=== PATIENT | male | born 1965 | race Hispanic/Latino ===

== ENCOUNTER 2017-09-25 08:25 | Emergency (ER) | payer OTHER ==
[2017-09-25] MEDS ORDERED: COLCHICINE 0.6 MG TAB ONE (09:05)
--- NOTE | 2017-09-25 09:51 | EDPHYS ---
Physician Documentation [facility] Name: Ralf Ferreira Age: 51 yrs Sex: Male : 1965 Arrival Date: 09/25/2017 Time: 08:26 Bed 8 Private MD: ED Physician Uriel Whitaker HPI: 09/25 08:41 This 51 yrs old Male presents to ER via Ambulatory with complaints of Foot kb Pain-Gout. 08:41 The patient presents with pain, that is acute, swelling, gout. The complaints affect kb the right foot. Context: The problem was sustained at home, resulted from a chronic condition, gout, the patient can partially bear weight, can ambulate using a cane. Onset: The symptoms/episode began/occurred 2 day(s) ago. Modifying factors: The symptoms are alleviated by nothing, the symptoms are aggravated by weight bearing, wearing shoes, touching area. Associated signs and symptoms: Pertinent positives: swelling, Pertinent negatives: calf tenderness, fever, nausea, numbness, rash, tingling, vomiting, warmth, weakness. Severity of symptoms: At their worst the symptoms were moderate, in the emergency department the symptoms are unchanged. The patient has experienced similar episodes in the past, several times. The patient has not recently seen a physician. Pt states he takes allopurinol for gout. States he felt a flare-up coming on and now it hurts to bear weight. States "I have a rockets game to go to [place] so I need to get rid of this pain." Reports pain started in right great toe and has spread to entire top of foot. Historical: - Allergies: 08:33 No Known Allergies; ss - Home Meds: 08:33 furosemide 40 mg Oral tab 1 tab once daily [Active]; clonidine HCl 0.1 mg Oral tab 1 ss tab once daily [Active]; allopurinol 100 mg Oral tab 1 tab once daily [Active]; hydralazine 50 mg Oral tab 1 tab daily [Active]; - PMHx: 08:33 Gout; Hypertension; ss - PSHx: 08:33 None; ss - Immunization history:: Adult Immunizations up to date. - Social history:: Smoking status: Patient uses tobacco products, denies chronic smoking, but will smoke occasionally. ROS: 08:44 Constitutional: Negative for fever, chills, and weight loss, Cardiovascular: Negative kb for chest pain, palpitations, and edema, Respiratory: Negative for shortness of breath, cough, wheezing, and pleuritic chest pain, Abdomen/GI: Negative for abdominal pain, nausea, vomiting, diarrhea, and constipation, : Negative for injury, bleeding, discharge, and swelling, Skin: Negative for injury, rash, and discoloration, Neuro: Negative for headache, weakness, numbness, tingling, and seizure. 08:44 MS/extremity: Positive for erythema, pain, swelling, tenderness, of the right first toe. Exam: 08:44 Constitutional: This is a well developed, well nourished patient who is awake, alert, kb and in no acute distress. Head/Face: Normocephalic, atraumatic. Chest/axilla: Normal chest wall appearance and motion. Nontender with no deformity. No lesions are appreciated. Cardiovascular: Regular rate and rhythm with a normal S1 and S2. No gallops, murmurs, or rubs. Normal PMI, no JVD. No pulse deficits. Respiratory: Lungs have equal breath sounds bilaterally, clear to auscultation and percussion. No rales, rhonchi or wheezes noted. No increased work of breathing, no retractions or nasal flaring. Abdomen/GI: Soft, non-tender, with normal bowel sounds. No distension or tympany. No guarding or rebound. No evidence of tenderness throughout. Skin: Warm, dry with normal turgor. Normal color with no rashes, no lesions, and no evidence of cellulitis. Neuro: Awake and alert, GCS 15, oriented to person, place, time, and situation. Cranial nerves II-XII grossly intact. Motor strength 5/5 in all extremities. Sensory grossly intact. Cerebellar exam normal. Normal gait. 08:44 Musculoskeletal/extremity: Extremities: grossly normal except: noted in the dorsum of right foot and right first toe: pain, ROM: intact in all extremities, Circulation is intact in all extremities. Sensation intact. Weight bearing: can bear weight with assistance only, uses cane. Vital Signs: 08:33 BP 160 / 99; Pulse 60; Resp 16; Pulse Ox 99% on R/A; Weight 90.72 kg; Height 6 ft. 0 ss in. (182.88 cm); Pain 9/10; 10:31 BP 155 / 92; Pulse 72; Resp 19; Pulse Ox 99% on R/A; aj 08:33 Body Mass Index 27.12 (90.72 kg, 182.88 cm) ss MDM: 08:34 Patient medically screened. kb 08:44 Data reviewed: vital signs, nurses notes. Data interpreted: Pulse oximetry: on room air kb is 99 %. Interpretation: normal. 09:44 Counseling: I had a detailed discussion with the patient and/or guardian regarding: the kb historical points, exam findings, and any diagnostic results supporting the discharge/admit diagnosis, the need for outpatient follow up, a family practitioner, to return to the emergency department if symptoms worsen or persist or if there are any questions or concerns that arise at home. Administered Medications: 08:55 Drug: Colcrys 1.2 mg Route: PO; ph 10:31 Follow up: Response: No adverse reaction aj 10:30 Drug: SOLU-Medrol 125 mg Route: IM; Site: right deltoid; aj 10:31 Follow up: Response: No adverse reaction aj 10:33 Follow up: Response: Medication administered at discharge. aj 10:31 Drug: [place] (7.5 mg-325 mg) 1 tabs Route: PO; aj 10:31 Follow up: Response: No adverse reaction aj 10:33 Follow up: Response: Medication administered at discharge. aj Disposition: 09/25/17 09:51 Discharged to Home. Impression: Gout. - Condition is Stable. - Discharge Instructions: Gout, [id number]. - Prescriptions for indomethacin 25 mg Oral capsule - take 1 capsule by ORAL route 3 times per day for 7 days Take 2 capsules 3 times per day for 3 days, then 1 capsule 3 times per day for 4 days; 30 capsule. - Medication Reconciliation Form, Thank You Letter, Antibiotic Education, Prescription Opioid Use form. - Follow up: Emergency Department; When: As needed; Reason: Worsening of condition. Follow up: Private Physician; When: 2 - 3 days; Reason: Recheck today's complaints, Continuance of care, Re-evaluation by your physician. Addendum: 09/27/2017 08:04 Co-signature as Attending Physician, Uriel Whitaker MD I agree with the assessment and c peterson plan of care. Signatures: Ade Cruz, YESY-C YESY-Cami Fernandez RN RN aj Anderson, Corey, MD MD cha [facility] Tawnya, JHONNY RN ss Marjan Albarran RN RN ph Corrections: (The following items were deleted from the chart) 09/25 08:47 08:41 Pt states he takes allopurinol for gout. States he felt a flare-up coming on and kb now it hurts to bear weight. States "I have a [employer] game to go to [place] so I need to get rid of this pain.". kb
--- NOTE | 2017-09-25 09:51 | ER ---
Nurse's Notes [facility] Name: Ralf Ferreira Age: 51 yrs Sex: Male : 1965 Arrival Date: 09/25/2017 Time: 08:26 Bed 8 Private MD: Diagnosis: Gout Presentation: 09/25 08:30 Presenting complaint: Patient states: "gout" R foot x 2 days. Transition of care: ss patient was not received from another setting of care. Onset of symptoms was September 23, 2017. Care prior to arrival: None. 08:30 Method Of Arrival: Ambulatory ss 08:30 Acuity: DALIA 5 ss Historical: - Allergies: 08:33 No Known Allergies; ss - Home Meds: 08:33 furosemide 40 mg Oral tab 1 tab once daily [Active]; clonidine HCl 0.1 mg Oral tab 1 ss tab once daily [Active]; allopurinol 100 mg Oral tab 1 tab once daily [Active]; hydralazine 50 mg Oral tab 1 tab daily [Active]; - PMHx: 08:33 Gout; Hypertension; ss - PSHx: 08:33 None; ss - Immunization history:: Adult Immunizations up to date. - Social history:: Smoking status: Patient uses tobacco products, denies chronic smoking, but will smoke occasionally. Screenin:00 Abuse screen: Denies threats or abuse. Denies injuries from another. Nutritional ph screening: No deficits noted. Tuberculosis screening: No symptoms or risk factors identified. Fall Risk None identified. Assessment: 08:56 General: Appears in no apparent distress. uncomfortable, slender, well groomed, ph Behavior is calm, cooperative, appropriate for age, Denies fever, feeling ill. Pain: Complains of pain in right foot. Neuro: Level of Consciousness is awake, alert, obeys commands, Oriented to person, place, time, situation. Cardiovascular: Capillary refill < 3 seconds Patient's skin is warm and dry. Respiratory: Airway is patent Respiratory effort is even, unlabored. Derm: Skin is intact, is healthy with good turgor, Skin is pink, warm \\T\\ dry. Musculoskeletal: Circulation, motion, and sensation intact. Range of motion: intact in all extremities, slight swelling and redness noted to top of R foot. Vital Signs: 08:33 BP 160 / 99; Pulse 60; Resp 16; Pulse Ox 99% on R/A; Weight 90.72 kg; Height 6 ft. 0 ss in. (182.88 cm); Pain 9/10; 10:31 BP 155 / 92; Pulse 72; Resp 19; Pulse Ox 99% on R/A; aj 08:33 Body Mass Index 27.12 (90.72 kg, 182.88 cm) ED Course: 08:26 Patient arrived in ED. as 08:30 Triage completed. ss 08:33 Arm band placed on right wrist. ss 08:34 [facility]C [facility]. kb 08:34 Uriel Whitaker MD is Attending Physician. kb 08:41 Cece Estrada, RN is Primary Nurse. hb 08:44 Marjan Albarran, RN is Primary Nurse. ph 10:31 Patient has correct armband on for positive identification. aj 10:31 No provider procedures requiring assistance completed. Patient did not have IV access aj during this emergency room visit. Administered Medications: 08:55 Drug: Colcrys 1.2 mg Route: PO; ph 10:31 Follow up: Response: No adverse reaction aj 10:30 Drug: SOLU-Medrol 125 mg Route: IM; Site: right deltoid; aj 10:31 Follow up: Response: No adverse reaction aj 10:33 Follow up: Response: Medication administered at discharge. aj 10:31 Drug: [place] (7.5 mg-325 mg) 1 tabs Route: PO; aj 10:31 Follow up: Response: No adverse reaction aj 10:33 Follow up: Response: Medication administered at discharge. aj Outcome: 09:51 Discharge ordered by . kb 10:31 Discharged to home ambulatory, with family. aj 10:31 Condition: good 10:31 Discharge instructions given to patient, family, Instructed on discharge instructions, follow up and referral plans. medication usage, Demonstrated understanding of instructions, follow-up care, medications, Prescriptions given X 1. 10:34 Patient left the ED. aj Signatures: Ade Cruz FNP-C FNP-Ckb Myers, Amanda, RN RN aj Martinez, Amelia as Smirch, Shelby, RN RN Marjan Albarran RN RN Cece Estrada, JHONNY RN
[2017-09-25] MEDS ORDERED: METHYLPREDNISOLONE 125 MG INJ ONE (10:45)
[2017-09-25] MEDS ORDERED: HYDROCODONE/APAP 7.5/325 MG TAB ONE (10:45)
== END 2017-09-25 10:34 | disposition home or self-care (01) ==
LOC: ER 08:25
DX: M10.9 Gout, unspecified (principal); I10 Essential (primary) hypertension; Z72.0 Tobacco use
CPT/HCPCS: 96372; 99283; J2930

== ENCOUNTER 2017-12-02 16:59 | Emergency (ER) | payer OTHER, SELFPAY ==
[2017-12-02] MEDS ORDERED: COLCHICINE 0.6 MG TAB ONE (17:45)
[2017-12-02] MEDS ORDERED: METHYLPREDNISOLONE 125 MG INJ ONE (17:45)
[2017-12-02] MEDS ORDERED: HYDROCODONE/APAP 5/325 MG TAB ONE (18:48)
--- NOTE | 2017-12-02 18:48 | ER ---
Nurse's Notes [facility] Name: Ralf Ferreira Age: 52 yrs Sex: Male : 1965 Arrival Date: 12/02/2017 Time: 17:02 Bed 5 Private MD: out of town, doctor Diagnosis: Gout right foot Presentation: 12/02 17:06 Presenting complaint: Patient states: Gout to right foot for 2 days. Patient reports aj gout flare to left foot several days ago. Patient reports calling Dr Joe and getting RX called in. Transition of care: patient was not received from another setting of care. Onset of symptoms was November 26, 2017. Care prior to arrival: None. 17:06 Method Of Arrival: Wheelchair aj 17:06 Acuity: DALIA 4 aj 18:10 Risk Assessment: Do you want to hurt yourself or someone else? Patient reports no sg desire to harm self or others. Initial Sepsis Screen: Does the patient meet any 2 criteria? No. Patient's initial sepsis screen is negative. Does the patient have a suspected source of infection? No. Patient's initial sepsis screen is negative. Triage Assessment: 17:08 General: Appears in no apparent distress. comfortable, Behavior is calm, cooperative, aj appropriate for age. Pain: Complains of pain in right foot. Neuro: Level of Consciousness is awake, alert, obeys commands, Oriented to person, place, time, situation, Appropriate for age. Respiratory: Airway is patent Respiratory effort is even, unlabored, Respiratory pattern is regular, symmetrical. Derm: Skin is intact, is healthy with good turgor, Skin is pink, warm \T\ dry. normal. Musculoskeletal: Reports pain in right foot. Historical: - Allergies: 17:08 No Known Allergies; aj - Home Meds: 17:08 allopurinol 200mg Oral tab 1 tab once daily [Active]; clonidine HCl 0.1 mg Oral tab 1 aj tab once daily [Active]; furosemide 40 mg Oral tab 1 tab once daily [Active]; hydralazine 50 mg Oral tab 1 tab daily [Active]; - PMHx: 17:08 Gout; Hypertension; aj - PSHx: 17:08 None; aj - Immunization history:: Adult Immunizations up to date. - Social history:: Smoking status: Patient/guardian denies using tobacco. - Ebola Screening: : Patient negative for fever greater than or equal to 101.5 degrees Fahrenheit, and additional compatible Ebola Virus Disease symptoms Patient denies exposure to infectious person Patient denies travel to an Ebola-affected area in the 21 days before illness onset No symptoms or risks identified at this time. Screenin:07 Abuse screen: Denies threats or abuse. Denies injuries from another. Nutritional iw screening: No deficits noted. Tuberculosis screening: No symptoms or risk factors identified. Fall Risk None identified. Assessment: 18:07 Reassessment: Patient appears in no apparent distress at this time. Patient and/or iw family updated on plan of care and expected duration. Pain level reassessed. Patient is alert, oriented x 3, equal unlabored respirations, skin warm/dry/pink. 18:42 Reassessment: Patient appears in no apparent distress at this time. Patient and/or sg family updated on plan of care and expected duration. Pain level reassessed. Patient is alert, oriented x 3, equal unlabored respirations, skin warm/dry/pink. Vital Signs: 17:08 BP 158 / 109; Pulse 107; Resp 19; Temp 98.6; Pulse Ox 98% on R/A; Weight 97.52 kg; aj Height 6 ft. 0 in. (182.88 cm); 17:08 Body Mass Index 29.16 (97.52 kg, 182.88 cm) ED Course: 17:02 Patient arrived in ED. mr 17:03 out of town, doctor is Private Physician. mr 17:08 Triage completed. aj 17:08 Arm band placed on left wrist. Patient placed in an exam room. aj 17:14 Phil Keating NP is PHCP. pm1 17:14 Phuc Murphy MD is Attending Physician. pm1 17:15 No provider procedures requiring assistance completed. sg 17:30 Blane Bar, RN is Primary Nurse. sg 17:35 Patient has correct armband on for positive identification. Bed in low position. Call sg light in reach. Side rails up X2. Pulse ox on. NIBP on. 18:50 Patient did not have IV access during this emergency room visit. sg Administered Medications: 17:52 Drug: Colcrys 1.2 mg Route: PO; sg 18:30 Follow up: Response: No adverse reaction 17:52 Drug: SOLU-Medrol 125 mg Route: IM; Site: right gluteus; sg 18:30 Follow up: Response: No adverse reaction sg 18:47 Drug: [place] 5 mg-325 mg 1 tabs Route: PO; sg 18:50 Follow up: Response: No adverse reaction Outcome: 18:47 Discharge ordered by . pm1 18:50 Discharged to home ambulatory, with family. sg 18:50 Condition: good 18:50 Discharge instructions given to patient, Instructed on discharge instructions, follow up and referral plans. medication usage, safety practices, Demonstrated understanding of instructions, follow-up care, medications, Prescriptions given X 2. 18:59 Patient left the ED. iw Signatures: Blane Bar RN RN sg Myers, Amanda, RN RN aj Rivera, Maria mr Andreea Staton, RN JHONNY iw Phil Keating, AMINA STUDENT FINANCIAL SERVICES COUNSELOR pm1
--- NOTE | 2017-12-02 18:48 | EDPHYS ---
Physician Documentation [facility] Name: Ralf Ferreira Age: 52 yrs Sex: Male : 1965 Arrival Date: 12/02/2017 Time: 17:02 Bed 5 Private MD: out of town, doctor ED Physician Phuc Murphy HPI: 12/02 18:45 This 52 yrs old Male presents to ER via Wheelchair with complaints of Gout. pm1 18:45 The patient presents with pain, swelling, tenderness. The complaints affect the right pm1 foot. Context: The problem was sustained at home, resulted from a gout flare up, similar to previous episodes, the patient can fully bear weight, the patient is able to ambulate. Onset: The symptoms/episode began/occurred 2 day(s) ago. Modifying factors: The symptoms are alleviated by nothing, the symptoms are aggravated by weight bearing, movement. Associated signs and symptoms: Pertinent negatives: calf tenderness, fever. Severity of symptoms: in the emergency department the symptoms are actually worse. The patient has experienced similar episodes in the past, multiple times. Patient with drinking alcohol and eating food that flares up his gout. His daughter recently graduated and he was celebrating. Had a left gout flare up that was treated with colcrys called in by Dr. Joe. As his left foot was resolving he felt that his right foot was starting to flare up. Historical: - Allergies: 17:08 No Known Allergies; aj - Home Meds: 17:08 allopurinol 200mg Oral tab 1 tab once daily [Active]; clonidine HCl 0.1 mg Oral tab 1 aj tab once daily [Active]; furosemide 40 mg Oral tab 1 tab once daily [Active]; hydralazine 50 mg Oral tab 1 tab daily [Active]; - PMHx: 17:08 Gout; Hypertension; aj - PSHx: 17:08 None; aj - Immunization history:: Adult Immunizations up to date. - Social history:: Smoking status: Patient/guardian denies using tobacco. - Ebola Screening: : Patient negative for fever greater than or equal to 101.5 degrees Fahrenheit, and additional compatible Ebola Virus Disease symptoms Patient denies exposure to infectious person Patient denies travel to an Ebola-affected area in the 21 days before illness onset No symptoms or risks identified at this time. ROS: 18:45 MS/extremity: Positive for pain, swelling, tenderness, of the right foot. pm1 18:45 Constitutional: Negative for fever, chills, and weight loss, Eyes: Negative for injury, pain, redness, and discharge, ENT: Negative for injury, pain, and discharge, Neck: Negative for injury, pain, and swelling, Cardiovascular: Negative for chest pain, palpitations, and edema, Respiratory: Negative for shortness of breath, cough, wheezing, and pleuritic chest pain, Abdomen/GI: Negative for abdominal pain, nausea, vomiting, diarrhea, and constipation, Back: Negative for injury and pain, : Negative for injury, bleeding, discharge, and swelling, Skin: Negative for injury, rash, and discoloration, Neuro: Negative for headache, weakness, numbness, tingling, and seizure. Exam: 18:45 Constitutional: This is a well developed, well nourished patient who is awake, alert, pm1 and in no acute distress. Head/Face: Normocephalic, atraumatic. Chest/axilla: Normal chest wall appearance and motion. Nontender with no deformity. No lesions are appreciated. Cardiovascular: Regular rate and rhythm with a normal S1 and S2. No gallops, murmurs, or rubs. Normal PMI, no JVD. No pulse deficits. Respiratory: Lungs have equal breath sounds bilaterally, clear to auscultation and percussion. No rales, rhonchi or wheezes noted. No increased work of breathing, no retractions or nasal flaring. Abdomen/GI: Soft, non-tender, with normal bowel sounds. No distension or tympany. No guarding or rebound. No evidence of tenderness throughout. Back: No spinal tenderness. No costovertebral tenderness. Full range of motion. Skin: Warm, dry with normal turgor. Normal color with no rashes, no lesions, and no evidence of cellulitis. 18:45 Musculoskeletal/extremity: Extremities: grossly normal except: noted in the right foot: tenderness, There is no evidence of decreased ROM, deformity, ROM: intact in all extremities, Circulation is intact in all extremities. 18:45 Neuro: Orientation: is normal, Motor: is normal, moves all fours. Vital Signs: 17:08 BP 158 / 109; Pulse 107; Resp 19; Temp 98.6; Pulse Ox 98% on R/A; Weight 97.52 kg; aj Height 6 ft. 0 in. (182.88 cm); 17:08 Body Mass Index 29.16 (97.52 kg, 182.88 cm) aj MDM: 17:15 Patient medically screened. pm1 18:46 Data reviewed: vital signs. Data interpreted: Pulse oximetry: on room air is 98 %. pm1 Interpretation: normal. Counseling: I had a detailed discussion with the patient and/or guardian regarding: the historical points, exam findings, and any diagnostic results supporting the discharge/admit diagnosis, the need for outpatient follow up, to return to the emergency department if symptoms worsen or persist or if there are any questions or concerns that arise at home. 18:47 ED course: Pain improved to 5/10 with colcrys and steroid injection. Will give patient pm1 additional pain medications for more pain relief. Administered Medications: 17:52 Drug: Colcrys 1.2 mg Route: PO; sg 18:30 Follow up: Response: No adverse reaction sg 17:52 Drug: SOLU-Medrol 125 mg Route: IM; Site: right gluteus; sg 18:30 Follow up: Response: No adverse reaction sg 18:47 Drug: [place] 5 mg-325 mg 1 tabs Route: PO; sg 18:50 Follow up: Response: No adverse reaction sg Disposition: 22:16 Co-signature as Attending Physician, Phuc Murphy MD I agree with the assessment and kdr plan of care. Disposition: 12/02/17 18:47 Discharged to Home. Impression: Gout right foot. - Condition is Stable. - Discharge Instructions: Gout. - Prescriptions for Colcrys 0.6 mg Oral tablet - take 1 tablet by ORAL route once daily; 3 tablet. Tylenol- Codeine #3 300-30 mg Oral Tablet - take 2 tablets by ORAL route every 6 hours As needed; 20 tablet. - Work release form, Medication Reconciliation Form, Thank You Letter, Prescription Opioid Use form. - Follow up: Emergency Department; When: As needed; Reason: Worsening of condition. Follow up: Private Physician; When: 2 - 3 days; Reason: Recheck today's complaints, Continuance of care, Re-evaluation by your physician. - Problem is new. - Symptoms have improved. Signatures: Blane Bar RN RN sg Myers, Amanda, RN RN aj Rittger Phuc, MD MD kdr Shemar, Andreea, RN RN iw Phil Keating, AMINA TWISTING FRAME FIXER pm1 Corrections: (The following items were deleted from the chart) 18:59 18:47 12/02/2017 18:47 Discharged to Home. Impression: Gout right foot. Condition is iw Stable. Forms are Work release form, Medication Reconciliation Form, Thank You Letter, Antibiotic Education, Prescription Opioid Use. Follow up: Emergency Department; When: As needed; Reason: Worsening of condition. Follow up: Private Physician; When: 2 - 3 days; Reason: Recheck today's complaints, Continuance of care, Re-evaluation by your physician. Problem is new. Symptoms have improved. pm1
== END 2017-12-02 18:59 | disposition home or self-care (01) ==
LOC: ER 16:59
DX: M10.9 Gout, unspecified (principal); I10 Essential (primary) hypertension
CPT/HCPCS: 96372; 99283; J2930